=== PATIENT | female | born 1950 | race African-American/Black ===

== ENCOUNTER 2023-08-22 21:55 | Emergency (ER) | payer OTHER ==
[~2023-08-22] VITALS: Ht 170.2 cm; Wt 74.8 kg
[2023-08-22 22:51] LABS: BASOPHILS % (AUTO) 0.4 % (0.0-2.0); EOSINOPHILS # (AUTO) 0.2 K/uL (0.0-0.7); EOSINOPHILS % (AUTO) 2.8 % (0.0-6.0); HEMATOCRIT 30 % (33-45); HEMOGLOBIN 9.9 g/dL (11.5-14.8); LYMPHOCYTES # (AUTO) 1.6 K/uL (0.8-4.8); LYMPHOCYTES % (AUTO) 23.9 % (20.0-44.0); MEAN CORPUSCULAR HEMOGLOBIN 28 PG (26.0-33.0); MEAN CORPUSCULAR HGB CONC 33 g/dl (31.0-36.0); MEAN CORPUSCULAR VOLUME 85 fL (82-100); MONOCYTES # (AUTO) 0.5 K/uL (0.1-1.30); MONOCYTES % (AUTO) 7.7 % (2.0-12.0); NEUTROPHILS # (AUTO) 4.3 K/uL (1.8-8.9); NEUTROPHILS % (AUTO) 65.2 % (43.0-81.0); PLATELET COUNT (AUTO) 350 K/uL (150-450); RED BLOOD CELL COUNT(AUTO) 3.58 MIL/uL (4.0-5.2); RED CELL DISTRIBUTION WIDTH 14.5 % (11.5-15.0); WHITE BLOOD COUNT (AUTO) 6.7 K/uL (4.3-11.0)
[2023-08-22 22:55] LABS: APPEARANCE,URINE CLEAR (CLEAR); BILIRUBIN,URINE NEGATIVE (NEGATIVE); BLOOD, URINE NEGATIVE Ery/uL (NEGATIVE); COLOR,URINE YELLOW (YELLOW); KETONES,URINE NEGATIVE (NEGATIVE); LEUKOCYTE ESTERASE ,URINE NEGATIVE (NEGATIVE); NITRITE, URINE NEGATIVE (NEGATIVE); PROTEIN,URINE NEGATIVE (NEGATIVE); UGLUCOSE NEGATIVE (NEGATIVE)
[2023-08-22 23:01] LABS: CALCIUM, SERUM 9.5 mg/dL (8.5-10.1); CARBON DIOXIDE 29 mmol/L (21-32); CHLORIDE 112 mmol/L (98-107); CREATININE 0.4 mg/dL (0.6-1.3); GLUCOSE 92 mg/dL (74-106); POTASSIUM 3.6 mmol/L (3.5-5.1); SODIUM SERUM 149 mmol/L (136-145); UREA NITROGEN, BLOOD 14 mg/dL (7-18)
[2023-08-22 23:03] LABS: INR 1.01 (0.91-1.10); PARTIAL THROMBOPLASTIN TIME 27.3 SEC (24.3-34.3); PROTHROMBIN TIME 10.7 SECS (9.2-11.1)
[2023-08-22 23:06] LABS: ALANINE AMINOTRANSFERASE 27 U/L (12-78); ALBUMIN 2.1 g/dL (3.4-5.0); ALKALINE PHOSPHATASE 83 U/L (46-116); ASPARTATE AMINOTRANSFERASE 6 U/L (15-37); BILIRUBIN,DIRECT 0.1 mg/dL (0.0-0.2); BILIRUBIN,TOTAL 0.3 mg/dL (0.2-1.0); TOTAL PROTEIN, SERUM 6.7 g/dL (6.4-8.2)
[2023-08-22 23:09] LABS: LACTIC ACID 1.3 mmol/L (0.4-2.0)
[2023-08-23 00:28] VITALS: BP 104/57; TEMP 97.8; O2SAT 95
[2023-08-27] MEDS ORDERED: CIPR500T5 PO (13:53)
== END 2023-08-23 00:29 | disposition home or self-care (01) ==
LOC: ER 22:00
DX: F03.90 Unspecified dementia, unspecified severity, without behavioral disturbance, psychotic disturbance, mood disturbance, and anxiety (principal); R94.31 Abnormal electrocardiogram [ECG] [EKG]; R79.89 Other specified abnormal findings of blood chemistry; Z20.822 Contact with and (suspected) exposure to COVID-19; Z66 Do not resuscitate
CPT/HCPCS: 36415; 70450-TC; 71045-TC; 80048-TC; 80076-TC; 82962-TC; 83605-TC; 84484-TC; 85025-TC; 85730-TC; 87040-TC; 87086-TC

== ENCOUNTER 2023-11-04 23:57 | Emergency (ER) | payer OTHER ==
[~2023-11-04] VITALS: Ht 157.5 cm; Wt 49.9 kg
[2023-11-05] MEDS ORDERED: DIATR MEGLU/DIATRIZOATE SODIUM 30 ML BOTTLE (GASTROGRAPHIN) ONE (00:37)
[2023-11-05] MEDS: DIATR MEGLU/DIATRIZOATE SODIUM 30 ML BOTTLE (GASTROGRAPHIN) PO ONE (00:45)
[2023-11-05 03:07] VITALS: BP 112/62; TEMP 98; O2SAT 99
== END 2023-11-05 03:08 | disposition home or self-care (01) ==
LOC: ER 23:59
DX: K94.23 Gastrostomy malfunction (principal); Z86.69 Personal history of other diseases of the nervous system and sense organs; Y84.8 Other medical procedures as the cause of abnormal reaction of the patient, or of later complication, without mention of misadventure at the time of the procedure; Y82.8 Other medical devices associated with adverse incidents
CPT/HCPCS: 99283; 74018; Q9963 ×2

== ENCOUNTER 2024-09-25 20:07 | Inpatient (IN) | payer OTHER ==
[~2024-09-25] VITALS: Ht 157.5 cm; Wt 57.8 kg
[2024-09-25] MEDS: IV NS 0.9% 1,000 ML BAG IV ONE (20:20)
[2024-09-25 20:42] LABS: PLATELET COUNT (AUTO) 227 K/uL (150-450); RED BLOOD CELL COUNT(AUTO) 3.77 MIL/uL (4.0-5.2); RED CELL DISTRIBUTION WIDTH 13.6 % (11.5-15.0); WHITE BLOOD COUNT (AUTO) 7.3 K/uL (4.3-11.0)
[2024-09-25] MEDS ORDERED: VANCOMYCIN 1 GM /D5W 250 ML PB IV ONE (20:44)
[2024-09-25] MEDS ORDERED: CEFEPIME 1 GM VIAL ONE (20:44)
[2024-09-25 20:49] LABS: CALCIUM, SERUM 9.1 mg/dL (8.5-10.1); CREATININE 1.1 mg/dL (0.6-1.3); SODIUM SERUM 139 mmol/L (136-145); UREA NITROGEN, BLOOD 33 mg/dL (7-18)
[2024-09-25] MEDS: CEFEPIME 1 GM in IV D5W 50 ML IV ONE (20:49)
[2024-09-25 20:54] LABS: ASPARTATE AMINOTRANSFERASE 12 U/L (15-37); INR 1.03 (0.91-1.10); TOTAL PROTEIN, SERUM 6.4 g/dL (6.4-8.2)
[2024-09-25 20:59] LABS: LACTIC ACID 1.9 mmol/L (0.4-2.0)
[2024-09-25 21:04] LABS: APPEARANCE,URINE SLIGHTLY CLOUDY (CLEAR); BLOOD, URINE NEGATIVE Ery/uL (NEGATIVE); LEUKOCYTE ESTERASE ,URINE NEGATIVE (NEGATIVE); NITRITE, URINE NEGATIVE (NEGATIVE); UGLUCOSE NEGATIVE (NEGATIVE)
[2024-09-25 21:11] LABS: AMPHETAMINE, URINE NEGATIVE (NEGATIVE); BARBITURATE, URINE NEGATIVE (NEGATIVE); BENZODIAZEPINE, URINE NEGATIVE (NEGATIVE); CANNABINOID, URINE NEGATIVE (NEGATIVE); COCCAINE, URINE NEGATIVE (NEGATIVE); OPIATE, URINE POSITIVE (NEGATIVE)
[2024-09-25 21:16] LABS: ADD URINE CULTURE NO; CALCIUM OXALATE CRYSTALS,UR Moderate /HPF (None Seen); SQUAMOUS EPITHELIAL CELL,UR Many /HPF (None Seen)
[2024-09-25] MEDS: VANCOMYCIN 1 GM in IV D5W 250 ML IV ONE (21:20)
[2024-09-25 21:24] LABS: SERUM AMMONIA 56 umol/L (11-32)
[2024-09-25 21:30] VITALS: O2SAT 97
[2024-09-25 21:30] LABS: ALCOHOL, BLOOD < 3 mg/dL (0-10)
[2024-09-25] MEDS: IV NS 0.9% 500 ML BAG IV ONE (22:31)
[2024-09-25] MEDS ORDERED: AZITHROMYCIN 500 MG VIAL ONE (22:40)
[2024-09-25] MEDS: AZITHROMYCIN 500 MG in IV D5W 250 ML IV ONE (22:45)
[2024-09-25] MEDS ORDERED: MAGNESIUM HYDROXIDE 30 ML UDC GT PRN (23:00)
[2024-09-25] MEDS ORDERED: Z GUARD REMEDY 4 OZ OINT TP PRN (23:00)
[2024-09-25] MEDS ORDERED: DOSING PER PHARMACY-VANCOMYCIN IV XX PRN (23:00)
[2024-09-25] MEDS ORDERED: DOSING PER PHARMACY-CEFEPIME IVPB XX PRN (23:00)
[2024-09-25] MEDS: ENOXAPARIN SODIUM 40 MG/0.4 ML DISP.SYRIN SQ SCH (23:00)
[2024-09-25] MEDS ORDERED: MAG HYDROX/AL HYDROX/SIMETH 30 ML UDC GT PRN (23:00)
[2024-09-25] MEDS ORDERED: ONDANSETRON HCL/PF 4 MG/2 ML VIAL IVP PRN (23:00)
[2024-09-25 23:06] VITALS: O2SAT 100
[2024-09-26] VITALS (68 sets, daily range): BP systolic 85–125; BP diastolic 46–66; TEMP 97.5–97.7; O2SAT 94–100
[2024-09-26] MEDS ORDERED: NOREPINEPHRINE 8MG/250ML RTU 250 ML IV ONE (00:54)
[2024-09-26] MEDS: NOREPINEPHRINE 8 MG in IV D5W 242 ML IV PRN (01:24)
[2024-09-26] MEDS ORDERED: NALOXONE HCL 0.4 MG/ML AMPUL ONE ×3 (01:34→03:43)
[2024-09-26] MEDS ORDERED: ONDANSETRON HCL/PF 4 MG/2 ML VIAL ONE (01:41)
[2024-09-26] MEDS: ONDANSETRON HCL/PF - ER 4 MG/2 ML VIAL IV ONE (01:42)
[2024-09-26 01:45] LABS: ABG BASE EXCESS -5.2 mmol/L (-2.0-3.0); ABG OXYGEN SATURATION 98.7 % (94.0-98.0); ABG PCO2 50.5 mmHg (32.0-45.0); ABG PH 7.256 (7.350-7.450); ABG PO2 210.3 mmHg (83.0-108.0); ABG TOTAL HEMOGLOBIN 10.7 G/dL (12.0-16.0); FLOW, BLOOD GAS 60.00 L/min (0.00-30.00); FRACTIONATED INSPIRED OXYGEN 100.0 %; SITE, ABG RIGHT RADIAL
[2024-09-26] MEDS: NALOXONE HCL 0.4 MG/ML AMPUL IV PRN ×2 (01:50→03:57)
[2024-09-26] MEDS: NALOXONE HCL 0.4 MG/ML AMPUL IV ONE (01:50)
[2024-09-26] MEDS ORDERED: NALOXONE PREFILLED SYRINGE 2 MG/2 ML SYRINGE ONE (02:20)
[2024-09-26] MEDS ORDERED: NALOXONE HCL 4 MG in IV NS 0.9% 240 ML IV PRN (02:30)
[2024-09-26 03:45] LABS: ABG BASE EXCESS -2.5 mmol/L (-2.0-3.0); ABG OXYGEN SATURATION 93.9 % (94.0-98.0); ABG PCO2 46.0 mmHg (32.0-45.0); ABG PH 7.327 (7.350-7.450); ABG PO2 74.5 mmHg (83.0-108.0); ABG TOTAL HEMOGLOBIN 11.6 G/dL (12.0-16.0); FLOW, BLOOD GAS 40.00 L/min (0.00-30.00); FRACTIONATED INSPIRED OXYGEN 40.0 %; SITE, ABG RIGHT RADIAL
[2024-09-26] MEDS ORDERED: NALOXONE HCL 0.4 MG/ML AMPUL IV PRN (04:00)
[2024-09-26] MEDS: IV NS 0.9% 500 ML BAG IV ONE (04:47)
[2024-09-26] MEDS ORDERED: ENOXAPARIN SODIUM 40 MG/0.4 ML DISP.SYRIN SQ ONE (04:50)
[2024-09-26] MEDS ORDERED: ACETAMINOPHEN 650 MG/SUPP.RECT RC PRN (05:00)
[2024-09-26] MEDS ORDERED: ACETAMINOPHEN 650 MG/SUPP.RECT RC ONE (05:01)
[2024-09-26 06:12] LABS: PLATELET COUNT (AUTO) 201 K/uL (150-450); RED BLOOD CELL COUNT(AUTO) 3.46 MIL/uL (4.0-5.2); RED CELL DISTRIBUTION WIDTH 13.4 % (11.5-15.0); WHITE BLOOD COUNT (AUTO) 8.7 K/uL (4.3-11.0)
[2024-09-26 06:26] LABS: CALCIUM, SERUM 8.2 mg/dL (8.5-10.1); CREATININE 0.8 mg/dL (0.6-1.3); PHOSPHORUS 2.6 mg/dL (2.5-4.9); SODIUM SERUM 140.0 mmol/L (136-145); UREA NITROGEN, BLOOD 28.0 mg/dL (7-18)
[2024-09-26] MEDS ORDERED: CEFEPIME 1 GM in IV D5W 50 ML IV ONE (08:00)
[2024-09-26] MEDS: VANCOMYCIN 750 MG in IV D5W 250 ML IV SCH (09:53)
[2024-09-26] MEDS: PANTOPRAZOLE 40 MG/PACK PACK GT SCH (09:55)
[2024-09-26] MEDS: IV NS 0.9% 1,000 ML IV PRN ×2 (09:58→11:03)
[2024-09-26] MEDS: CEFEPIME 2 GM in IV D5W 100 ML IV SCH (10:41)
[2024-09-26] MEDS: Magnesium 1GM/D5W 100ML PREMIX 100 ML IV SCH (12:58)
[2024-09-26 13:32] LABS: ABG BASE EXCESS -2.8 mmol/L (-2.0-3.0); ABG OXYGEN SATURATION 99.0 % (94.0-98.0); ABG PCO2 55.7 mmHg (32.0-45.0); ABG PH 7.264 (7.350-7.450); ABG PO2 302.8 mmHg (83.0-108.0); ABG TOTAL HEMOGLOBIN 10.5 G/dL (12.0-16.0); FRACTIONATED INSPIRED OXYGEN 100.0 %; SET RATE, BG 16.0; SITE, ABG RIGHT RADIAL
[2024-09-26 15:57] LABS: ABG BASE EXCESS -2.8 mmol/L (-2.0-3.0); ABG OXYGEN SATURATION 99.0 % (94.0-98.0); ABG PCO2 52.9 mmHg (32.0-45.0); ABG PH 7.279 (7.350-7.450); ABG PO2 353.2 mmHg (83.0-108.0); ABG TOTAL HEMOGLOBIN 10.3 G/dL (12.0-16.0); FRACTIONATED INSPIRED OXYGEN 100.0 %; SET RATE, BG 24.0; SITE, ABG RIGHT RADIAL
[2024-09-26] MEDS: ACETAMINOPHEN 650 MG/SUPP.RECT RC PRN (19:19)
[2024-09-27] VITALS (49 sets, daily range): BP systolic 79–118; BP diastolic 33–85; TEMP 97.2–98.9; O2SAT 77–100
[2024-09-27] MEDS ORDERED: PHENYLEPHRINE 50 MG in IV NS 0.9% 245 ML IV PRN (01:00)
[2024-09-27 04:55] LABS: PLATELET COUNT (AUTO) 159 K/uL (150-450); RED BLOOD CELL COUNT(AUTO) 2.76 MIL/uL (4.0-5.2); RED CELL DISTRIBUTION WIDTH 13.4 % (11.5-15.0); WHITE BLOOD COUNT (AUTO) 7.9 K/uL (4.3-11.0)
[2024-09-27 05:15] LABS: CALCIUM, SERUM 8.3 mg/dL (8.5-10.1); CREATININE 0.6 mg/dL (0.6-1.3); PHOSPHORUS 1.9 mg/dL (2.5-4.9); SODIUM SERUM 143.0 mmol/L (136-145); UREA NITROGEN, BLOOD 19.0 mg/dL (7-18)
[2024-09-27 07:40] LABS: ABG BASE EXCESS -3.0 mmol/L (-2.0-3.0); ABG OXYGEN SATURATION 96.8 % (94.0-98.0); ABG PCO2 42.0 mmHg (32.0-45.0); ABG PH 7.347 (7.350-7.450); ABG PO2 98.4 mmHg (83.0-108.0); ABG TOTAL HEMOGLOBIN 9.0 G/dL (12.0-16.0); SET RATE, BG 24.0; SITE, ABG RIGHT RADIAL
[2024-09-27] MEDS ORDERED: CYCL5TAB PO (13:38)
[2024-09-27] MEDS ORDERED: IBUP-23 PO (13:38)
[2024-09-27] MEDS ORDERED: ACET-2605 PO (13:38)
[2024-09-27] MEDS: NEUTRA PHOS 1 POWD.PACKET NG ONE (15:12)
[2024-09-27] MEDS: JEVITY 1.2 CAL 1,000 ML BOTTLE GT PRN (15:18)
[2024-09-28] VITALS (27 sets, daily range): BP systolic 112–134; BP diastolic 53–82; TEMP 98.1–99.1; O2SAT 95–100
[2024-09-28 05:28] LABS: PLATELET COUNT (AUTO) 164 K/uL (150-450); RED BLOOD CELL COUNT(AUTO) 2.70 MIL/uL (4.0-5.2); RED CELL DISTRIBUTION WIDTH 13.2 % (11.5-15.0); WHITE BLOOD COUNT (AUTO) 8.5 K/uL (4.3-11.0)
[2024-09-28 09:00] LABS: ASPARTATE AMINOTRANSFERASE 16.0 U/L (15-37); CALCIUM, SERUM 8.3 mg/dL (8.5-10.1); CREATININE 0.3 mg/dL (0.6-1.3); PHOSPHORUS 1.8 mg/dL (2.5-4.9); SODIUM SERUM 144.0 mmol/L (136-145); TOTAL PROTEIN, SERUM 5.5 g/dL (6.4-8.2); UREA NITROGEN, BLOOD 9.0 mg/dL (7-18)
[2024-09-28 09:41] LABS: ABG BASE EXCESS 0.9 mmol/L (-2.0-3.0); ABG OXYGEN SATURATION 98.9 % (94.0-98.0); ABG PCO2 31.8 mmHg (32.0-45.0); ABG PH 7.495 (7.350-7.450); ABG PO2 239.5 mmHg (83.0-108.0); ABG TOTAL HEMOGLOBIN 8.7 G/dL (12.0-16.0); FLOW, BLOOD GAS 60.00 L/min (0.00-30.00); FRACTIONATED INSPIRED OXYGEN 60.0 %; SITE, ABG LEFT RADIAL
[2024-09-28] MEDS: POTASSIUM CL. PREMIX PERIPHER. 50 ML IV SCH ×2 (12:32→18:31)
[2024-09-28] MEDS: NEUTRA PHOS 1 POWD.PACKET GT ONE (16:15)
[2024-09-29] VITALS (16 sets, daily range): BP systolic 110–131; BP diastolic 58–79; TEMP 97.9–100; O2SAT 96–100
[2024-09-29 05:05] LABS: PLATELET COUNT (AUTO) 191 K/uL (150-450); RED BLOOD CELL COUNT(AUTO) 2.82 MIL/uL (4.0-5.2); RED CELL DISTRIBUTION WIDTH 13.0 % (11.5-15.0); WHITE BLOOD COUNT (AUTO) 8.0 K/uL (4.3-11.0)
[2024-09-29 05:25] LABS: ASPARTATE AMINOTRANSFERASE 17.0 U/L (15-37); CALCIUM, SERUM 8.2 mg/dL (8.5-10.1); CREATININE 0.2 mg/dL (0.6-1.3); PHOSPHORUS 1.8 mg/dL (2.5-4.9); TOTAL PROTEIN, SERUM 5.5 g/dL (6.4-8.2); UREA NITROGEN, BLOOD 5.0 mg/dL (7-18)
[2024-09-29 05:36] LABS: SODIUM SERUM 141.0 mmol/L (136-145)
[2024-09-29] MEDS: POTASSIUM CL. PREMIX PERIPHER. 50 ML IV SCH (06:42)
[2024-09-29] MEDS: NEUTRA PHOS 1 POWD.PACKET GT ONE (06:43)
[2024-09-29] MEDS: Magnesium 1GM/D5W 100ML PREMIX 100 ML IV SCH (06:43)
[2024-09-29 08:07] LABS: FOLIC ACID 12.9 ng/mL (>3.0)
[2024-09-29] MEDS: POTASSIUM CHLORIDE 20 MEQ POWDER PACKET GT ONE (10:00)
[2024-09-29 13:46] LABS: CALCIUM, SERUM 8.4 mg/dL (8.5-10.1); CREATININE 0.4 mg/dL (0.6-1.3); SODIUM SERUM 143.0 mmol/L (136-145); UREA NITROGEN, BLOOD 4.0 mg/dL (7-18)
[2024-09-30] VITALS: BP 123/62; TEMP 100; O2SAT 98
[2024-09-30 04:00] VITALS: BP 134/75; TEMP 98.8; O2SAT 98
[2024-09-30 08:00] VITALS: BP 137/73; TEMP 98.4; O2SAT 98
[2024-09-30 08:10] LABS: CALCIUM, SERUM 8.4 mg/dL (8.5-10.1); CREATININE 0.4 mg/dL (0.6-1.3); SODIUM SERUM 144.0 mmol/L (136-145); UREA NITROGEN, BLOOD 5.0 mg/dL (7-18)
[2024-09-30 08:11] LABS: PHOSPHORUS 2.4 mg/dL (2.5-4.9)
[2024-09-30] MEDS: POTASSIUM CHLORIDE 20 MEQ POWDER PACKET GT SCH (09:26)
[2024-09-30] MEDS: POTASSIUM CL. PREMIX PERIPHER. 50 ML IV SCH (09:26)
[2024-09-30 12:00] VITALS: BP 140/78; TEMP 98.4; O2SAT 100
[2024-09-30 14:13] LABS: CALCIUM, SERUM 8.4 mg/dL (8.5-10.1); CREATININE 0.4 mg/dL (0.6-1.3); SODIUM SERUM 142.0 mmol/L (136-145); UREA NITROGEN, BLOOD 5.0 mg/dL (7-18)
[2024-09-30 14:17] LABS: PHOSPHORUS 2.3 mg/dL (2.5-4.9)
[2024-09-30] MEDS: NEUTRA PHOS 1 POWD.PACKET NG ONE (15:51)
[2024-09-30 16:00] VITALS: BP 130/71; TEMP 98.4; O2SAT 100
[2024-10-01] MEDS ORDERED: VANCOMYCIN 750 MG in IV D5W 250 ML IV SCH (09:00)
[2024-10-01 14:07] LABS: METHYLMALONIC ACID 105.0 nmol/L (0-378)
== END 2024-09-30 17:53 | disposition short-term general hospital (02) | DRG 177 ==
LOC: ER 20:11 → MS IN 09-26 01:32 → ICU 09-26 07:05 → TELE1 09-29 11:43
PROVIDERS: ADMIT Registered Nurse Psychiatric/Mental Health
PROC: 5A09457 Assistance with Respiratory Ventilation, 24-96 Consecutive Hours, Continuous Positive Airway Pressure (ICD-10-PCS; principal; 2024-09-26)
PROC: 02HV33Z Insertion of Infusion Device into Superior Vena Cava, Percutaneous Approach (ICD-10-PCS; 2024-09-26)
PROC: B548ZZA Ultrasonography of Superior Vena Cava, Guidance (ICD-10-PCS; 2024-09-26)
DX: J69.0 Pneumonitis due to inhalation of food and vomit (principal); G92.8 Other toxic encephalopathy; J96.01 Acute respiratory failure with hypoxia; L89.153 Pressure ulcer of sacral region, stage 3; L89.323 Pressure ulcer of left buttock, stage 3; L89.313 Pressure ulcer of right buttock, stage 3; J96.02 Acute respiratory failure with hypercapnia; N39.0 Urinary tract infection, site not specified; E44.1 Mild protein-calorie malnutrition; N17.9 Acute kidney failure, unspecified; G93.49 Other encephalopathy; G81.91 Hemiplegia, unspecified affecting right dominant side; E72.20 Disorder of urea cycle metabolism, unspecified; D64.9 Anemia, unspecified; E86.0 Dehydration; R13.10 Dysphagia, unspecified; Z93.1 Gastrostomy status; Z20.822 Contact with and (suspected) exposure to COVID-19; R73.9 Hyperglycemia, unspecified; E80.6 Other disorders of bilirubin metabolism; E88.09 Other disorders of plasma-protein metabolism, not elsewhere classified; L98.8 Other specified disorders of the skin and subcutaneous tissue; L89.136 Pressure-induced deep tissue damage of right lower back; L89.146 Pressure-induced deep tissue damage of left lower back; B96.89 Other specified bacterial agents as the cause of diseases classified elsewhere; L89.899 Pressure ulcer of other site, unspecified stage; R25.2 Cramp and spasm; Z74.01 Bed confinement status; E87.6 Hypokalemia; F01.50 Vascular dementia, unspecified severity, without behavioral disturbance, psychotic disturbance, mood disturbance, and anxiety
CPT/HCPCS: 36415; 36569; 36600; 70450-TC; 71045-TC; 76700-TC; 80048-TC; 80053-TC; 80076-TC; 80202-TC; 81001; 82140-TC; 82607-TC; 82803-TC; 83605-TC; 83735-TC; 83880; 83921; 84100-TC; 84132-TC; 84425; 84443-TC; 84484-TC; 85025-TC; 85730-TC; 87040-TC; 87081-TC; 87086-TC; 94799-TC; A4223; G0378; G0480; J0456; J0692; J1650; J2312; J2405; J3373; J3374; J3475; J3480; J7030; J7040; J7050; J7060